=== PATIENT | female | born 1975 | race Two or more races ===

== ENCOUNTER 2021-04-13 22:36 | Emergency (ER) | payer SELFPAY ==
[~2021-04-13] VITALS: Ht 165.1 cm; Wt 97.7 kg
[2021-04-13 23:15] VITALS: BP 153/68
--- NOTE | 2021-04-13 23:34 | PHYS DOC ---
General Adult EDM: Chief Complaint: FLU SYMPTOM HPI: HPI: Patient is a 45-year-old female who presents to the emergency department for nonproductive cough, shortness of breath, body aches, vomiting and sore throat that started 2 days ago. Patient reports only vomiting two times since her symptoms started. Patient denies any sick exposures. She denies any fevers. Reports right lower rib pain with coughing. Review of Systems: Review of Systems: Constitutional: See HPI HENT: See HPI Respiratory: See HPI Cardiovascular: See HPI GI: See HPI Musculoskeletal: see HPI Heart Score: C/O Chest Pain: No Risk Factors: Risk Factors: DM, Current or recent (<one month) smoker, HTN, HLP, family history of CAD, obesity. Risk Scores: Score 0 - 3: 2.5% MACE over next 6 weeks - Discharge Home Score 4 - 6: 20.3% MACE over next 6 weeks - Admit for Clinical Observation Score 7 - 10: 72.7% MACE over next 6 weeks - Early Invasive Strategies Physical Exam: PE: Constitutional: Well developed, well nourished, no acute distress, non-toxic panda earance. [] HENT: Normocephalic, atraumatic, bilateral external ears normal, oropharynx moist, 2+ tonsillar enlargement, postnasal drip, no tonsillar exudate, uvula midline, no trismus, no phonation changes, no oral exudates, nose normal. [] Eyes: PERRL, EOMI, conjunctiva normal, no discharge. [] Neck: Normal range of motion, no tenderness, supple, no cervical lymphadenopathy palpable, no stridor. [] Cardiovascular:Heart rate regular rhythm, no murmur [] Lungs & Thorax: Bilateral breath sounds clear to auscultation but diminished in lower lobes [] Abdomen: Bowel sounds normal, soft, no tenderness, no masses, no pulsatile masses. [] Skin: Warm, dry, no erythema, no rash. [] Back: Normal range of motion Extremities: No tenderness, no cyanosis, no clubbing, ROM intact, no edema. [] Neurologic: Alert and oriented X 3, normal motor function, normal sensory function, no focal deficits noted. [] Psychologic: Affect normal, judgement normal, mood normal. [] EKG: EKG: [] Radiology/Procedures: Radiology/Procedures: []PROCEDURE: PORTABLE CHEST 1V XR CHEST 1V Clinical History: Reason: soa, cough, pui / Spl. Instructions: / History: Technique: AP view of the chest was obtained at 04/13/2021 11:32 PM. Comparison: None. Findings: The heart is top normal limits in size. There is patchy opacity throughout the lungs bilaterally. The pulmonary vessels are not well seen. There is blunting of left costophrenic angle. Impression: Tiny left effusion and moderate bilateral pulmonary infiltrates likely atypical pneumonia. Electronically signed by: Lida Hurt III, MD (04/13/2021 11:48 PM) [facility] DICTATED and SIGNED BY: LIDA HURT III, MD DATE: 04/13/21 [id number] Course & Med Decision Making: Course & Med Decision Making Pertinent Labs and Imaging studies reviewed. (See chart for details) [] Patient presents to the emergency department for nonproductive cough, shortness of breath, vomiting, body aches and sore throat that started 2 days ago. Patient was tested for COVID-19, influenza and strep throat. Chest x-ray performed to rule out pneumonia that showed bilateral infiltrates, likely atypical pneumonia. Patient will be discharged home with an antibiotic.. Influenza and strep testing was negative.. Patient will be notified of those results immediately available in approximately 2 days. Patient advised to self isolate until she receives these results. Patient advised to take Tylenol and ibuprofen for pain at home. She is treated with a DuoNeb in the ER. She is being discharged home with an albuterol inhaler for soa and wheezing. VSS, non labored, no hypoxia. Advised to follow-up with her primary care provider tomorrow. Patient given a list of clinic list in which she can follow-up with if she does not have a PCP. I discussed with patient all findings and diagnostic testing as well as the need to follow-up with PCP for further evaluation and treatment or return to the ER if any new or worsening symptoms. Strict return precautions were also discussed at length. Patient voiced understanding and agreement with the plan. Patient is hemodynamically stable at the time of disposition. Dragon Disclaimer: Dragon Disclaimer: This electronic medical record was generated, in whole or in part, using a voice recognition dictation system. Departure Departure Impression: Primary Impression: Person under investigation for COVID-19 Additional Impression: Pneumonia Qualified Codes: J18.9 - Pneumonia, unspecified organism Disposition: HOME / SELF CARE / HOMELESS Condition: GOOD Referrals: NO PCP (PCP) Patient Instructions: Cough, Adult, Pneumonia, Adult Additional Instructions: You were seen in the emergency department today for sore throat, cough, shortness of breath. Your rapid strep test was negative. Your rapid influenza test was negative. Your Covid test is pending at this time and you will be notified of those results when they become available in approximately 2 days. Please self isolate until you receive these results. A chest x-ray was performed in the emergency department that showed pneumonia. This to be treated with an antibiotic. Please start and finish it completely. You were treated in the emergency department with a breathing treatment. Increase your fluids and rest at home. For any pain or fevers you can take Tylenol and/or ibuprofen. You are being discharged home with an albuterol inhaler that you can use as needed for shortness of breath or wheezing. You can take Delsym OTC for your cough. Follow-up with your primary care provider tomorrow regarding your ER visit. If you do not have a primary care provider, you can follow-up with one of the primary care providers listed in the pamphlet that you were given or one of the clinics. Return to the emergency department if you develop worsening of your shortness of breath, high fevers refractory to treatment, chest pain, intractable nausea or vomiting, weakness or severe fatigue or any new or worsening concerns. Scripts Albuterol Sulfate (Proair Hfa) 8.5 Gm Hfa.aer.ad 2 PUFF IH PRN Q4-6HRS PRN for wheezing for 21 Days, #1 INHALER 0 Refills Prov: DEMARCUS WHITFIELD APRN 04/14/21 Azithromycin (ZITHROMAX) 250 Mg Tablet 1 PKG PO UD, #1 PKG 0 Refills Prov: DEMARCUS WHITFIELD APRN 04/14/21 DEMARCUS WHITFIELD APRN Apr 13, 2021 23:34
--- NOTE | 2021-04-13 23:50 | RAD ---
XR CHEST 1V Clinical History: Reason: soa, cough, pui / Spl. Instructions: / History: Technique: AP view of the chest was obtained at 04/13/2021 11:32 PM. Comparison: None. Findings: The heart is top normal limits in size. There is patchy opacity throughout the lungs bilaterally. The pulmonary vessels are not well seen. There is blunting of left costophrenic angle. Impression: Tiny left effusion and moderate bilateral pulmonary infiltrates likely atypical pneumonia. Electronically signed by: Gatito Hurt III, MD (04/13/2021 11:48 PM) [facility]
[2021-04-14] MEDS ORDERED: IPRATRPIUM/ALBUTEROL 0.5/2.5MG 3 ML NEBU. NEB ONE
[2021-04-14] MEDS ORDERED: ALBU2.5V8 IH (00:11)
[2021-04-14] MEDS ORDERED: AZIT250T PO (00:11)
[2021-04-14 00:19] LABS: INFLUENZA A PATIENT NEGATIVE (NEGATIVE); INFLUENZA B PATIENT NEGATIVE (NEGATIVE)
--- NOTE | 2021-04-14 11:36 | NUR ---
IP: Attempted to contact pt concerning covid results. No answer, left a voicemail to return the call. Addendum: 04/14/21 at 1155 by ALEJO SHERIDAN RN A person by the name Iris Moreno returned the call. Does not know pt and has not been in our facility. Number provided on demographics is a wrong number.
--- NOTE | 2021-04-15 15:32 | NUR ---
IP: Attempted to contact pt through spouse phone number on file. It automatically goes to message of not voicemail box has been set up.
== END 2021-04-14 01:00 | disposition home or self-care (01) ==
LOC: ER 22:36
DX: U07.1 COVID-19 (principal); J18.9 Pneumonia, unspecified organism
CPT/HCPCS: 71045; 87070; 87804; 87880; 94640; 99284; U0003; U0005